=== PATIENT | female | born 1980 | race Caucasian/White ===

== ENCOUNTER 2017-07-23 13:08 | Observation (INO) | payer BC ==
[2017-07-23] MEDS ORDERED: ASPIRIN 81 MG PO STA (13:34)
[2017-07-23] MEDS ORDERED: NITROGLYCERIN OINT 1 INCH/GM PACKET TOPICAL STA (13:34)
--- NOTE | 2017-07-23 13:37 | ED ---
General Adult HPI - General Chief complaint: Chest Pain Stated complaint: Chest Pain Time Seen by Provider: 07/23/17 13:29 Source: patient, RN notes reviewed Mode of arrival: wheelchair Limitations: no limitations - History of Present Illness Initial comments: Patient is a pleasant 36-year-old female presenting to the emergency department with complaints of chest discomfort. Onset of symptoms was an hour prior to arrival. Patient has as comfort described as pressure of the left chest. There is radiation towards the left arm. Discomfort is currently rated 4/10. Onset was at rest. Patient has associated nausea. No sweating or dyspnea. No history of similar symptoms previously. - Related Data Home Medications Medication Instructions Recorded Confirmed No Known Home Medications [No 07/23/17 07/23/17 Known Home Medications] Allergies Allergy/AdvReac Type Severity Reaction Status Date / Time No Known Allergies Allergy Verified 07/23/17 13:57 Review of Systems ROS Statement: Those systems with pertinent positive or pertinent negative responses have been documented in the HPI. ROS Other: All systems not noted in ROS Statement are negative. Constitutional: Denies: fever Eyes: Denies: eye pain ENT: Denies: ear pain Respiratory: Denies: cough, dyspnea Cardiovascular: Reports: chest pain Endocrine: Denies: fatigue Gastrointestinal: Denies: abdominal pain Genitourinary: Denies: dysuria Musculoskeletal: Denies: back pain Skin: Denies: rash Neurological: Denies: weakness Past Medical History Past Medical History: No Reported History History of Any Multi-Drug Resistant Organisms: MRSA Date of last positivie culture/infection: 2008 MDRO Source:: surgical incision Past Surgical History: Cholecystectomy, Tubal Ligation Past Psychological History: No Psychological Hx Reported Smoking Status: Former smoker Past Alcohol Use History: None Reported Past Drug Use History: None Reported General Exam Limitations: no limitations General appearance: alert, in no apparent distress Head exam: Present: atraumatic Eye exam: Present: normal appearance, PERRL ENT exam: Present: normal oropharynx Neck exam: Present: normal inspection Respiratory exam: Present: normal lung sounds bilaterally Cardiovascular Exam: Present: regular rate, normal rhythm Expanded Peripheral pulses: 2+: Radial (R), Radial (L), Posterior Tibialis (R), Posterior Tibialis (L) GI/Abdominal exam: Present: soft. Absent: tenderness Extremities exam: Present: normal inspection. Absent: pedal edema, calf tenderness Neurological exam: Present: alert Expanded Sensory exam: Upper Extremity Light Touch: Normal, Lower Extremity Light Touch: Normal Motor strength exam: RUE: 5, LUE: 5, RLE: 5, LLE: 5 Psychiatric exam: Present: normal affect, normal mood Skin exam: Present: normal color Course Vital Signs 07/23/17 07/23/17 07/23/17 13:10 13:50 13:54 Temperature 98.0 F Pulse Rate 90 78 71 Respiratory 20 16 18 Rate Blood Pressure 128/72 128/77 111/64 O2 Sat by Pulse 98 100 99 Oximetry 07/23/17 14:34 Temperature Pulse Rate 75 Respiratory 16 Rate Blood Pressure 111/70 O2 Sat by Pulse 100 Oximetry EKG Findings - EKG Comments: EKG Findings:: normal sinus rhythm 75. ID 132. QRS 80. QT 390. QTC 435. Normal axis. Normal QRS. No acute ST change. Medical Decision Making - Medical Decision Making patient reevaluated with mild improvement. Discomfort was 4/10 and now was 3/ 10. Patient and family were updated on results and plan. Dr. Valerio has been paged for admission for Dr. Dunbar. He is covering for Dr. coles. - Lab Data Result diagrams: 07/23/17 13:46 07/23/17 13:46 Lab Results 07/23/17 07/23/17 07/23/17 Range/Units 13:46 13:46 13:46 WBC 9.0 (3.8-10.6) k/uL RBC 4.71 (3.80-5.40) m/uL Hgb 13.8 (11.4-16.0) gm/dL Hct 42.8 (34.0-46.0) % MCV 90.9 (80.0-100.0) fL MCH 29.3 (25.0-35.0) pg MCHC 32.2 (31.0-37.0) g/dL RDW 12.5 (11.5-15.5) % Plt Count 282 (150-450) k/uL Neutrophils % 78 % Lymphocytes % 14 % Monocytes % 6 % Eosinophils % 0 % Basophils % 0 % Neutrophils # 7.0 (1.3-7.7) k/uL Lymphocytes # 1.2 (1.0-4.8) k/uL Monocytes # 0.5 (0-1.0) k/uL Eosinophils # 0.0 (0-0.7) k/uL Basophils # 0.0 (0-0.2) k/uL PT (9.0-12.0) sec INR (<1.2) APTT (22.0-30.0) sec D-Dimer (<0.60) mg/L FEU Sodium 139 (137-145) mmol/L Potassium 4.2 (3.5-5.1) mmol/L Chloride 107 (98-107) mmol/L Carbon Dioxide 21 L (22-30) mmol/L Anion Gap 11 mmol/L BUN 14 (7-17) mg/dL Creatinine 0.95 (0.52-1.04) mg/dL Est GFR (MDRD) Af Amer >60 (>60 ml/min/1.73 sqM) Est GFR (MDRD) Non-Af >60 (>60 ml/min/1.73 sqM) Glucose 86 (74-99) mg/dL Calcium 9.3 (8.4-10.2) mg/dL Magnesium 1.7 (1.6-2.3) mg/dL Total Bilirubin 0.5 (0.2-1.3) mg/dL AST 20 (14-36) U/L ALT 23 (9-52) U/L Alkaline Phosphatase 72 (38-126) U/L Total Creatine Kinase 50 (30-135) U/L CK-MB (CK-2) 0.3 (0.0-2.4) ng/mL CK-MB (CK-2) Rel Index 0.6 Troponin I <0.012 (0.000-0.034) ng/mL Total Protein 7.2 (6.3-8.2) g/dL Albumin 4.2 (3.5-5.0) g/dL 07/23/17 Range/Units 13:46 WBC (3.8-10.6) k/uL RBC (3.80-5.40) m/uL Hgb (11.4-16.0) gm/dL Hct (34.0-46.0) % MCV (80.0-100.0) fL MCH (25.0-35.0) pg MCHC (31.0-37.0) g/dL RDW (11.5-15.5) % Plt Count (150-450) k/uL Neutrophils % % Lymphocytes % % Monocytes % % Eosinophils % % Basophils % % Neutrophils # (1.3-7.7) k/uL Lymphocytes # (1.0-4.8) k/uL Monocytes # (0-1.0) k/uL Eosinophils # (0-0.7) k/uL Basophils # (0-0.2) k/uL PT 10.2 (9.0-12.0) sec INR 1.0 (<1.2) APTT 26.7 (22.0-30.0) sec D-Dimer 0.29 (<0.60) mg/L FEU Sodium (137-145) mmol/L Potassium (3.5-5.1) mmol/L Chloride (98-107) mmol/L Carbon Dioxide (22-30) mmol/L Anion Gap mmol/L BUN (7-17) mg/dL Creatinine (0.52-1.04) mg/dL Est GFR (MDRD) Af Amer (>60 ml/min/1.73 sqM) Est GFR (MDRD) Non-Af (>60 ml/min/1.73 sqM) Glucose (74-99) mg/dL Calcium (8.4-10.2) mg/dL Magnesium (1.6-2.3) mg/dL Total Bilirubin (0.2-1.3) mg/dL AST (14-36) U/L ALT (9-52) U/L Alkaline Phosphatase (38-126) U/L Total Creatine Kinase (30-135) U/L CK-MB (CK-2) (0.0-2.4) ng/mL CK-MB (CK-2) Rel Index Troponin I (0.000-0.034) ng/mL Total Protein (6.3-8.2) g/dL Albumin (3.5-5.0) g/dL - Radiology Data Radiology results: image reviewed (Chest x-ray shows no acute process) Disposition Clinical Impression: Chest pain Disposition: ADMITTED IP TO THIS [facility] Referrals: Kraig Dunbar DO [Primary Care Provider] - 1-2 days Decision Time: 14:48
--- NOTE | 2017-07-23 14:07 | XR ---
EXAMINATION TYPE: XR chest 2V DATE OF EXAM: 07/23/2017 COMPARISON: NONE HISTORY: Chest pain TECHNIQUE: Frontal and lateral views of the chest are obtained. FINDINGS: Heart and mediastinum are normal. Lungs are clear. Diaphragm is normal. Bony thorax is int act. IMPRESSION: Normal chest
[2017-07-23 14:09] LABS: Basophils % (A) 0 %; CH 29.4; CHCM 32.5; Eosinophils % (A) 0 %; HCT 42.8 % (34.0-46.0); HDW 2.49; HGB 13.8 gm/dL (11.4-16.0); Luc # (Auto) 0.19; Luc % (Auto) 2; Lymphocytes # (A) 1.2 k/uL (1.0-4.8); Lymphocytes % (A) 14 %; MCH 29.3 pg (25.0-35.0); MCHC 32.2 g/dL (31.0-37.0); MCV 90.9 fL (80.0-100.0); Mean Platelet Volume 7.4; Monocytes # (A) 0.5 k/uL (0-1.0); Monocytes % (A) 6 %; Neutrophils % (A) 78 %; RBC 4.71 m/uL (3.80-5.40); RDW 12.5 % (11.5-15.5)
[2017-07-23 14:19] LABS: ALT 23 U/L (9-52); AST 20 U/L (14-36); Alkaline Phosphatase 72 U/L (38-126); Anion Gap 11 mmol/L; Blood Urea Nitrogen 14 mg/dL (7-17); Calcium 9.3 mg/dL (8.4-10.2); Carbon Dioxide 21 mmol/L (22-30); Chloride 107 mmol/L (98-107); Glucose 86 mg/dL (74-99); Magnesium 1.7 mg/dL (1.6-2.3); Non-African American GFR(MDRD) >60 (>60 ml/min/1.73 sqM); Partial Thromboplastin Time 26.7 sec (22.0-30.0); Potassium 4.2 mmol/L (3.5-5.1); Prothrombin Time 10.2 sec (9.0-12.0); Sodium 139 mmol/L (137-145); Total Bilirubin 0.5 mg/dL (0.2-1.3); Total Protein 7.2 g/dL (6.3-8.2)
[2017-07-23 14:22] LABS: Creatine Kinase 50 U/L (30-135)
[2017-07-23 14:36] LABS: Creatine Kinase MB 0.3 ng/mL (0.0-2.4); Troponin I <0.012 ng/mL (0.000-0.034)
[2017-07-23] MEDS ORDERED: NITROGLYCERIN SL TABS 0.4 MG TAB SUBLINGUAL PRN (14:48)
[2017-07-23 15:34] VITALS: BMI 31.1
[2017-07-23] MEDS ORDERED: HYDROcodone/APAP 5-325MG 1 EACH TAB PO STA (15:45)
[2017-07-23] MEDS ORDERED: ONDANSETRON 4 MG/2 ML VIAL IVP PRN (15:45)
--- NOTE | 2017-07-23 16:29 | P.HPIM ---
History of Present Illness Patient is that is 6-year-old came in with the complaints of chest pain started today when he was at doctor's office pressure-like sensation in the left arm which continued for about an hour radiating to the chest area patient is also comparing of neck pain denied any degenerative neck disease in the past patient denied any shortness of breath, diaphoresis associated with that patient was comparing of some headedness associated with that, patient chest pain is nonpleuritic not associated with food, denied any fever, chills, nausea, vomiting patient denied any premature Nery disease in first-degree family members. Although significant family history on her mother's side for coronary artery disease. EKG showed normal sinus rhythm without any acute ST-T wave changes patient doesn't have any risk factors of hypertension, diabetes mellitus , hyperlipidemia or smoking. first set of troponin is negative. Patient is admitted to rule out acute coronary syndromes and unstable angina. Review of Systems REVIEW OF SYSTEMS: CONSTITUTIONAL: No fever, no malaise, no fatigue. HEENT: No recent visual problems or hearing problems. Denied any sore throat. CARDIOVASCULAR: No orthopnea, PND, no palpitations, no syncope. PULMONARY: No shortness of breath, no cough, no hemoptysis. GASTROINTESTINAL: No diarrhea, no nausea, no vomiting, no abdominal pain. Normoactive bowel sounds. NEUROLOGICAL: No headaches, no weakness, no numbness. HEMATOLOGICAL: Denies any bleeding or petechiae. GENITOURINARY: Denies any burning micturition, frequency, or urgency. MUSCULOSKELETAL/RHEUMATOLOGICAL: Denies any joint pain, swelling, or any muscle pain. ENDOCRINE: Denies any polyuria or polydipsia. The rest of the 14-point review of systems is negative. Past Medical History Past Medical History: No Reported History Additional Past Medical History / Comment(s): ITP History of Any Multi-Drug Resistant Organisms: MRSA Date of last positivie culture/infection: 2008 MDRO Source:: surgical site Past Surgical History: Cholecystectomy, Tubal Ligation Past Psychological History: No Psychological Hx Reported Smoking Status: Former smoker Past Alcohol Use History: None Reported Past Drug Use History: None Reported Medications and Allergies Home Medications Medication Instructions Recorded Confirmed Type No Known Home Medications [No 07/23/17 07/23/17 History Known Home Medications] Allergies Allergy/AdvReac Type Severity Reaction Status Date / Time No Known Allergies Allergy Verified 07/23/17 13:57 Physical Exam Vitals: Vital Signs Temp Pulse Pulse Resp BP BP Pulse Ox 07/23/17 15:58 97.7 F 71 18 112/70 98 07/23/17 15:23 97.7 F 64 18 90/62 100 07/23/17 14:34 75 16 111/70 100 07/23/17 13:54 71 18 111/64 99 07/23/17 13:50 78 16 128/77 100 07/23/17 13:10 98.0 F 90 20 128/72 98 Intake and Output 07/23/17 07/23/17 07/23/17 06:59 14:59 22:59 Other: # Voids 0 # Bowel Movements 0 Weight 84.822 kg 84.822 kg Patient Weight 07/24/17 05:59 Weight 84.822 kg PHYSICAL EXAMINATION: GENERAL: The patient is alert and oriented x3, not in any acute distress. Well developed, well nourished. HEENT: Pupils are round and equally reacting to light. EOMI. No scleral icterus. No conjunctival pallor. Normocephalic, atraumatic. No pharyngeal erythema. No thyromegaly. CARDIOVASCULAR: S1 and S2 present. No murmurs, rubs, or gallops. PULMONARY: Chest is clear to auscultation, no wheezing or crackles. ABDOMEN: Soft, nontender, nondistended, normoactive bowel sounds. No palpable organomegaly. MUSCULOSKELETAL: No joint swelling or deformity. EXTREMITIES: No cyanosis, clubbing, or pedal edema. NEUROLOGICAL: Gross neurological examination did not reveal any focal deficits. SKIN: No rashes. Results CBC & Chem 7: 07/23/17 13:46 07/23/17 13:46 Labs: Abnormal Lab Results - Last 24 Hours (Table) 07/23/17 Range/Units 13:46 Carbon Dioxide 21 L (22-30) mmol/L Thrombosis Risk Factor Assmnt - Choose All That Apply Each Factor Represents 1 point: Obesity (BMI >25) Thrombosis Risk Factor Assessment Total Risk Factor Score: 1 Thrombosis Risk Factor Assessment Level: Low Risk Assessment and Plan Plan: #1 chest pain: Rule out acute coronary syndromes and unstable angina patient patient will be evaluated by cardiology will monitor her overnight here. #2 possibility of musculoskeletal x-ray and degenerative neck disease contributing to her thinking and numbness in the left arm. #3 headache due to nitro patch.
[2017-07-23] MEDS: NITROGLYCERIN OINT 1 INCH/GM PACKET TOPICAL SCH ×2 (17:17→23:00)
[2017-07-23 20:07] LABS: Creatine Kinase 42 U/L (30-135)
[2017-07-23 20:21] LABS: Creatine Kinase MB 0.3 ng/mL (0.0-2.4); Troponin I <0.012 ng/mL (0.000-0.034)
[2017-07-24 01:58] LABS: Creatine Kinase 40 U/L (30-135)
[2017-07-24 02:11] LABS: Creatine Kinase MB <0.2 ng/mL (0.0-2.4); Troponin I <0.012 ng/mL (0.000-0.034)
[2017-07-24] MEDS: NITROGLYCERIN OINT 1 INCH/GM PACKET TOPICAL SCH ×2 (05:16→11:59)
[2017-07-24 06:42] LABS: Cholesterol 116 mg/dL (<200); HDL Cholesterol 40 mg/dL (40-60)
[2017-07-24 07:37] VITALS: RESP 18
[2017-07-24] MEDS ORDERED: ASPIRIN 325 MG TAB PO SCH (09:00)
--- NOTE | 2017-07-24 09:14 | P.CRDCN ---
History of Present Illness Consult date: 07/24/17 Chief complaint: Chest discomfort History of present illness: This is a pleasant 36-year-old female patient who is one of our employee with no significant past medical history of coronary artery disease, diabetes, hypertension, and dyslipidemia, presented to the hospital complaining of left arm discomfort for and neck discomfort. The patient was with her son at the dental office when suddenly she started experiencing left arm numbness. No chest discomfort at that point. Subsequently she started experiencing neck discomfort. No associated symptoms of sweating, shortness of breath, dizziness or lightheadedness or syncope. The EKG showed sinus rhythm without any significant ST or T-wave abnormalities. The cardiac enzymes were checked and came in to be unremarkable. I recommended the patient to get up and around and if she is asymptomatic she might be able to be discharged home and have a stress test done as an outpatient. Past Medical History Past Medical History: No Reported History Additional Past Medical History / Comment(s): ITP History of Any Multi-Drug Resistant Organisms: MRSA Date of last positivie culture/infection: 2008 MDRO Source:: surgical site Past Surgical History: Cholecystectomy, Tubal Ligation Past Psychological History: No Psychological Hx Reported Smoking Status: Former smoker Past Alcohol Use History: None Reported Past Drug Use History: None Reported Medications and Allergies Home Medications Medication Instructions Recorded Confirmed Type No Known Home Medications [No 07/23/17 07/23/17 History Known Home Medications] Allergies Allergy/AdvReac Type Severity Reaction Status Date / Time No Known Allergies Allergy Verified 07/23/17 13:57 Physical Exam Vitals: Vital Signs Temp Pulse Pulse Resp BP BP Pulse Ox 07/24/17 07:36 97.7 F 83 18 103/56 97 07/24/17 03:48 98.2 F 60 16 98/58 100 07/23/17 23:28 77 16 07/23/17 23:27 99.1 F 77 16 97/64 99 07/23/17 19:54 75 16 07/23/17 19:53 98 F 75 16 102/60 98 07/23/17 15:58 97.7 F 71 18 112/70 98 07/23/17 15:23 97.7 F 64 18 90/62 100 07/23/17 14:34 75 16 111/70 100 07/23/17 13:54 71 18 111/64 99 07/23/17 13:50 78 16 128/77 100 07/23/17 13:10 98.0 F 90 20 128/72 98 Intake and Output 07/23/17 07/24/17 07/24/17 23:59 06:59 14:59 Intake Total Balance Intake: IV FLUSH Oral Other: Voiding Method Toilet # Voids # Bowel Movements Weight - Constitutional General appearance: no acute distress - Respiratory Respiratory: bilateral: CTA - Cardiovascular Rhythm: regular Heart sounds: normal: S1, S2 Results 07/23/17 13:46 07/23/17 13:46 Cardiac Enzymes 07/23/17 07/23/17 07/23/17 Range/Units 13:46 13:46 19:22 AST 20 (14-36) U/L CK-MB (CK-2) 0.3 0.3 (0.0-2.4) ng/mL Troponin I <0.012 <0.012 (0.000-0.034) ng/mL 07/24/17 Range/Units 01:24 EST AST (14-36) U/L CK-MB (CK-2) <0.2 (0.0-2.4) ng/mL Troponin I <0.012 (0.000-0.034) ng/mL Coagulation 07/23/17 Range/Units 13:46 PT 10.2 (9.0-12.0) sec APTT 26.7 (22.0-30.0) sec Lipids 07/24/17 Range/Units 05:52 Triglycerides 63 (<150) mg/dL Cholesterol 116 (<200) mg/dL HDL Cholesterol 40 (40-60) mg/dL CBC 07/23/17 Range/Units 13:46 WBC 9.0 (3.8-10.6) k/uL RBC 4.71 (3.80-5.40) m/uL Hgb 13.8 (11.4-16.0) gm/dL Hct 42.8 (34.0-46.0) % Plt Count 282 (150-450) k/uL Comprehensive Metabolic Panel 07/23/17 Range/Units 13:46 Sodium 139 (137-145) mmol/L Potassium 4.2 (3.5-5.1) mmol/L Chloride 107 (98-107) mmol/L Carbon Dioxide 21 L (22-30) mmol/L BUN 14 (7-17) mg/dL Creatinine 0.95 (0.52-1.04) mg/dL Glucose 86 (74-99) mg/dL Calcium 9.3 (8.4-10.2) mg/dL AST 20 (14-36) U/L ALT 23 (9-52) U/L Alkaline Phosphatase 72 (38-126) U/L Total Protein 7.2 (6.3-8.2) g/dL Albumin 4.2 (3.5-5.0) g/dL Current Medications Generic Name Dose Route Start Last Admin Trade Name Freq PRN Reason Stop Dose Admin Aspirin 325 mg 07/24/17 09:00 07/24/17 08:53 Aspirin PO 325 mg DAILY [facility] Administration Nitroglycerin 1 inch 07/23/17 18:00 07/24/17 05:16 Nitro-Bid Oint TOPICAL Not Given Q6HR [facility] Nitroglycerin 0.4 mg 07/23/17 14:48 Nitrostat SUBLINGUAL Q5M PRN Chest Pain Ondansetron HCl 4 mg 07/23/17 15:45 Zofran IVP Q6HR PRN Nausea And Vomiting Sodium Chloride 10 ml 07/23/17 21:00 07/24/17 08:53 Saline Flush IV 10 ml BID ALYX Administration Intake and Output 07/23/17 07/24/17 07/24/17 23:59 06:59 14:59 Intake Total Balance Intake: IV FLUSH Oral Other: Voiding Method Toilet # Voids # Bowel Movements Weight 07/23/17 13:46 07/23/17 13:46 Assessment and Plan Assessment: This is a pleasant 36-year-old female patient with no significant past medical history who was admitted with atypical chest discomfort. As a matter of fact she did have left arm discomfort and neck discomfort. She did also have left arm numbness. She has a good pulse in the left arm. I recommended the patient to get up and around and if she is asymptomatic she might be able to be discharged home and have a stress test done as an outpatient in our office.
[2017-07-24 13:02] VITALS: BP 109/69; PULSE 77; TEMP 97.1
--- NOTE | 2017-07-25 15:41 | P.DS ---
Providers Date of admission: 07/23/17 14:50 Attending physician: Ly Valerio Consults: 07/23/17 14:48 Consult Physician Urgent Consulting Provider: Dany Madrigal Consult Reason/Comments: chest pain Do you want consulting provider notified?: Yes Primary care physician: Kraig Dunbar [facility] Course: She was admitted for chest pain, was ruled out acute coronary syndromes, patient was evaluated by cardiology patient appears to have neck pain radiating to the chest area and cardiology is recommending outpatient follow-up an outpatient stress test. PHYSICAL EXAMINATION: GENERAL: The patient is alert and oriented x3, not in any acute distress. Well developed, well nourished. HEENT: Pupils are round and equally reacting to light. EOMI. No scleral icterus. No conjunctival pallor. Normocephalic, atraumatic. No pharyngeal erythema. No thyromegaly. CARDIOVASCULAR: S1 and S2 present. No murmurs, rubs, or gallops. PULMONARY: Chest is clear to auscultation, no wheezing or crackles. ABDOMEN: Soft, nontender, nondistended, normoactive bowel sounds. No palpable organomegaly. MUSCULOSKELETAL: No joint swelling or deformity. EXTREMITIES: No cyanosis, clubbing, or pedal edema. NEUROLOGICAL: Gross neurological examination did not reveal any focal deficits. SKIN: No rashes. Plan - Discharge Summary New Discharge Prescriptions: No Action No Known Home Medications [No Known Home Medications] Discharge Medication List No Known Home Medications [No Known Home Medications] 07/23/17 [History] Follow up Appointment(s)/Referral(s): Kraig Dunbar DO [Primary Care Provider] - 3 Days (Please call to make an appointment during normal business hours) Patient Instructions/Handouts: Chest Pain (DC) Discharge Disposition: HOME SELF-CARE
== END 2017-07-24 13:13 | disposition home or self-care (01) ==
LOC: EC 13:08 → 6SEL 14:50
PROVIDERS: ADMIT Internal Medicine; ATTEND Internal Medicine
DX: R07.89 Other chest pain (principal); R11.0 Nausea; R20.0 Anesthesia of skin; M79.602 Pain in left arm; M54.2 Cervicalgia; E66.9 Obesity, unspecified; Z68.30 Body mass index [BMI] 30.0-30.9, adult; G44.40 Drug-induced headache, not elsewhere classified, not intractable; T46.3X5A Adverse effect of coronary vasodilators, initial encounter; Z86.14 Personal history of Methicillin resistant Staphylococcus aureus infection; Z87.891 Personal history of nicotine dependence; Z82.49 Family history of ischemic heart disease and other diseases of the circulatory system
CPT/HCPCS: 99285; 36415; 93005; 85379; 80061; 80053; 82550 ×2; 82553 ×2; 83735; 84484 ×2; 85025; 85610; 85730; 71020; G0378 ×2

== ENCOUNTER → 2018-06-26 | Outpatient (CLI) | payer BC ==
[2018-06-26 12:56] LABS: Albumin 3.9 g/dL (3.5-5.0); Calcium 9.3 mg/dL (8.4-10.2); Potassium 4.4 mmol/L (3.5-5.1); Total Bilirubin 0.5 mg/dL (0.2-1.3); Total Protein 6.9 g/dL (6.3-8.2)
[2018-06-26 12:59] LABS: Basophils % (A) 0 %; Eosinophils # (A) 0.1 k/uL (0-0.7); Eosinophils % (A) 1 %; HCT 39.5 % (34.0-46.0); HGB 12.9 gm/dL (11.4-16.0); Lymphocytes # (A) 1.5 k/uL (1.0-4.8); Lymphocytes % (A) 18 %; MCH 28.8 pg (25.0-35.0); MCHC 32.7 g/dL (31.0-37.0); MCV 88.1 fL (80.0-100.0); Mean Platelet Volume 7.1; Monocytes # (A) 0.5 k/uL (0-1.0); Monocytes % (A) 6 %; Neutrophils # (A) 6.2 k/uL (1.3-7.7); Neutrophils % (A) 75 %; Platelet Count 295 k/uL (150-450); RBC 4.48 m/uL (3.80-5.40); RDW 12.9 % (11.5-15.5); WBC 8.3 k/uL (3.8-10.6)
[2018-06-26 13:25] LABS: Appearance,Urine Clear (Clear); Bilirubin,Urine Negative (Negative); Blood,Urine Negative (Negative); Color,Urine Yellow; Glucose,Urine (UA) Negative (Negative); Ketones,Urine Negative (Negative); Leukocyte Esterase,Urine Trace (Negative); Mucus,Urine Rare /hpf; Nitrite,Urine Negative (Negative); Protein,Urine Trace (Negative); RBC,Urine 1 /hpf (0-5); Specific Gravity,Urine 1.021 (1.001-1.035); Squamous Epithelial Cell,Urine 2 /hpf (0-4); Urobilinogen,Urine <2.0 mg/dL (<2.0)
== END ==
LOC: LABWHC1 11:29
PROVIDERS: ATTEND Physician Assistant
DX: Z00.00 Encounter for general adult medical examination without abnormal findings (principal)
CPT/HCPCS: 36415; 80053; 80061; 81001; 84443; 85025

== ENCOUNTER → 2019-11-28 | Day surgery (SDC) | payer BC ==
[2019-11-23 14:52] VITALS: BMI 31.4
[~2019-11-28] MED LIST: LIDOCAINE 1% (10MG/ML) FOR IV START INTRADERMA PRN; LIDOCAINE 1% INJ 10MG/ML (20 ML MDV) ONE; PROPOFOL 10 MG/ML 20 ML VIAL IV ONE
[2019-11-28 09:57] VITALS: TEMP 97.3
[2019-11-28] MEDS: LACTATED RINGERS 1,000 ML IV SCH ×2 (10:10→10:53)
--- NOTE | 2019-11-28 10:56 | P.GSHP ---
History of Present Illness H&P Date: 11/28/19 CHIEF COMPLAINT: Rectal bleeding HISTORY OF PRESENT ILLNESS: The patient is a 39-year-old female who presents for colon screen. Lower endoscopy was offered for further evaluation and management. PAST MEDICAL HISTORY: Please see list. PAST SURGICAL HISTORY: Please see list. MEDICATIONS: Please see list. ALLERGIES: Please see list. SOCIAL HISTORY: No illicit drug use FAMILY HISTORY: No reports of Crohn disease or ulcerative colitis. REVIEW OF ORGAN SYSTEMS: CONSTITUTIONAL: No reports of fevers or chills. PHYSICAL EXAM: VITAL SIGNS: Stable GENERAL: Well-developed pleasant in no acute distress. HEENT: No scleral icterus. Extraocular movements grossly intact. Moist buccal mucosa. NECK: Supple without lymphadenopathy. CHEST: Unlabored respirations. Equal bilateral excursions. CARDIOVASCULAR: Regular rate and rhythm. Distal 2+ pulses. ABDOMEN: Soft, nontender, nondistended. MUSCULOSKELETAL: No clubbing, cyanosis, or edema. ASSESSMENT: 1. Rectal bleeding PLAN: 1. Recommend proceeding with a lower endoscopy Past Medical History Past Medical History: No Reported History Additional Past Medical History / Comment(s): RECTAL BLEEDING, IMMUNE THROMBOCYTOPENIA History of Any Multi-Drug Resistant Organisms: MRSA Date of last positivie culture/infection: 2008 MDRO Source:: surgical site Past Surgical History: Cholecystectomy, Tubal Ligation Additional Past Surgical History / Comment(s): COLONOSCOPY Past Anesthesia/Blood Transfusion Reactions: No Reported Reaction Smoking Status: Former smoker - Past Family History Mother Family Medical History: No Reported History Medications and Allergies Home Medications Medication Instructions Recorded Confirmed Type ALPRAZolam [Xanax] 0.25 mg PO DAILY PRN 11/23/19 11/28/19 History FLUoxetine HCL [PROzac] 40 mg PO DAILY 11/23/19 11/28/19 History Allergies Allergy/AdvReac Type Severity Reaction Status Date / Time No Known Allergies Allergy Verified 11/28/19 10:00 Surgical - Exam Vital Signs Temp Pulse Resp BP Pulse Ox 97.3 F L 92 18 129/71 98 11/28/19 09:51 11/28/19 09:51 11/28/19 09:51 11/28/19 09:51 11/28/19 09:51
--- NOTE | 2019-11-28 11:23 | P.PCN ---
Date of Procedure: 11/28/19 Description of Procedure: PREOPERATIVE DIAGNOSIS: Rectal bleeding Family history colon polyps POSTOPERATIVE DIAGNOSIS: Rectal bleeding Family history colon polyps Sigmoid colon polyp Diverticulosis OPERATION: Colonoscopy to the ileocecal valve and appendiceal orifice. Colonoscopy with cold forceps biopsies SURGEON: Negra Robins MD. ANESTHESIA: MAC. INDICATIONS: The patient is an 39-year-old male who presents family history of colon polyps and rectal bleeding. Benefits and risks were described and informed consent was obtained. DESCRIPTION OF PROCEDURE: The patient had undergone Suprep. She had been brought into the operating room and laid in the left lateral decubitus position. After adequate intravenous sedation, the rectum was examined with 2% lidocaine jelly. The prostate was unremarkable. External hemorrhoids were encountered. The rectal tone was within normal limits. No lesions were palpated in the rectal vault. An Olympus colonoscope was advanced until the ileocecal valve and appendiceal orifice were clearly viewed. The prep was fair. Sigmoid diverticulosis was encountered. Colon polyp at 15 cm was removed with cold forceps biopsy to completion of 3 mm in size. No evidence of focal colitis was found. Retroflexion of the scope demonstrated grade 2 internal hemorrhoids without active bleeding or inflammation. The colon was desufflated. The patient had tolerated the procedure well. Withdrawal time was over 6 minutes. FINDINGS: Aronchick preparation quality scale 1 (1-5) Internal hemorrhoids, grade 2 No external hemorrhoids No arteriovenous malformations. Sigmoid diverticulosis Removal of 1 polyp: - Cold forceps biopsy at 15 cm from the anal verge, 3 mm polyp. No focal colitis. RECOMMENDATIONS: Repeat colonoscopy at age 45 Plan - Discharge Summary Discharge Rx Participant: No New Discharge Prescriptions: Continue ALPRAZolam [Xanax] 0.25 mg PO DAILY PRN PRN Reason: Anxiety FLUoxetine HCL [PROzac] 40 mg PO DAILY Discharge Medication List ALPRAZolam [Xanax] 0.25 mg PO DAILY PRN 11/23/19 [History] FLUoxetine HCL [PROzac] 40 mg PO DAILY 11/23/19 [History] Follow up Appointment(s)/Referral(s): Negra Robins MD [STAFF PHYSICIAN] - 12/18/19 Patient Instructions/Handouts: *Surgery [facility] - (Anesthesia) Endoscopy Discharge Instructions, Colorectal Polyps (IP), Diverticulosis (GEN), Diverticulosis Diet (GEN) Activity/Diet/Wound Care/Special Instructions: Repeat colonoscopy at age 45 Discharge Disposition: HOME SELF-CARE
[2019-11-28 11:56] VITALS: BP 106/69; PULSE 68; RESP 18
== END | disposition home or self-care (01) ==
LOC: ORWHC2ENDO 08:58
PROVIDERS: ATTEND Surgery Plastic and Reconstructive Surgery
DX: K63.5 Polyp of colon (principal); K57.30 Diverticulosis of large intestine without perforation or abscess without bleeding; K64.1 Second degree hemorrhoids; Z83.71 Family history of colonic polyps; K64.4 Residual hemorrhoidal skin tags; D69.6 Thrombocytopenia, unspecified; F39 Unspecified mood [affective] disorder; Z86.14 Personal history of Methicillin resistant Staphylococcus aureus infection; Z90.49 Acquired absence of other specified parts of digestive tract; Z98.51 Tubal ligation status; Z87.891 Personal history of nicotine dependence; Z79.899 Other long term (current) drug therapy
CPT/HCPCS: 81025; 88305; 45380; J2001; J2704

== ENCOUNTER 2022-01-18 17:44 | Emergency (ER) | payer BC ==
[2022-01-18 17:49] VITALS: BP 138/89; PULSE 92; RESP 18; TEMP 98.5
--- NOTE | 2022-01-18 18:53 | CT ---
EXAMINATION TYPE: CT brain wo con CT DLP: 1056.4 mGycm, Automated exposure control for dose reduction was used. DATE OF EXAM: 01/18/2022 6:05 PM COMPARISON: None. CLINICAL INDICATION:Female, 41 years old with history of Injury, head injury 2 days ago, c.o headache TECHNIQUE: Brain: Multiple axial CT images of the brain were obtained without IV contrast. FINDINGS: Brain: Extra-axial spaces: No abnormal extra-axial fluid collections. There is a lipoma within the falx cere soy. Ventricular system: Within normal limits Cerebral parenchyma: No acute intraparenchymal hemorrhage or mass effect. The reddy-white junction is well differentiated. Cerebellum: Unremarkable. Mass effect: No evidence of midline shift. Intracranial vasculature: unremarkable Soft tissues: Normal. Calvarium/osseous structures: No depressed skull fracture. Paranasal sinuses and mastoid air cells: Mild scattered paranasal sinus disease. Visualized orbits: Orbital contents are intact. IMPRESSION: No acute intracranial process.
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
== END 2022-01-18 19:52 | disposition home or self-care (01) ==
LOC: EC 17:44
DX: S00.83XA Contusion of other part of head, initial encounter (principal); F32.A Depression, unspecified; Z79.899 Other long term (current) drug therapy; W26.8XXA Contact with other sharp object(s), not elsewhere classified, initial encounter
CPT/HCPCS: 70450; 99283

== ENCOUNTER → 2024-01-26 | Outpatient (CLI) | payer BC, OTHER ==
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
== END | disposition home or self-care (01) ==
LOC: RADCTMAIN 08:13
PROVIDERS: ATTEND Family Medicine
DX: R51.9 Headache, unspecified (principal); M54.2 Cervicalgia
CPT/HCPCS: 70450; 72125